=== PATIENT | male | born 1950 | race Caucasian/White ===

== ENCOUNTER 2016-06-29 01:15 | Inpatient (IN) | payer BC, OTHER ==
[~2016-06-29] VITALS: Ht 177.8 cm; Wt 95.3 kg
--- NOTE | ~2016-06-29 | D ---
[facility] [place] [address] DISCHARGE SUMMARY Name: SHARON LO Room #: 214-P [facility] IN M.R.#: [id number] Admission: 06/29/16 Attend Phys: Kameron Pineda MD Discharge: 06/30/16 Date of : 52 Report #: [id number] THIS REPORT FOR: //name// CC: Kameron Alvarenga MD DATE OF SERVICE: 06/30/2016 DISCHARGE DIAGNOSES: 1. New atrial fibrillation, now in sinus. 2. Coronary artery disease. 3. Hypertension. 4. Dyslipidemia. 5. Peripheral vascular disease. 6. Prior history of tobacco abuse. CONSULTS: Cardiology. PROCEDURES: None. HOSPITAL COURSE: The patient is a 65-year-old male with a history of coronary artery disease, drug-eluting stent, hypertension, dyslipidemia, peripheral vascular disease, tobacco abuse, presented to the ER. The patient was transferred from [facility] secondary to rapid AFib. Please see details of admission dictated by myself on 06/29/2016. The patient was admitted and Cardiology was consulted. He was initially on a Cardizem drip and subsequently switched to oral Cardizem. He is now back in sinus and rate controlled. He has been on Effient for drug-eluting stent that was placed in December of last year. He had no ischemic symptoms; therefore, repeat stress test was not ordered. He was feeling much better once his rhythm was back in sinus. Cardiology recommended discharge and outpatient followup with Dr. Calvin. He was also started on Eliquis as well. DISCHARGE DISPOSITION: To home. DISCHARGE PHYSICAL EXAMINATION: VITAL SIGNS: Temperature of 98.8, pulse of 69, blood pressure 120/78, O2 sats 95% on room air. GENERAL: He is awake, alert, answering question appropriately, no acute respiratory distress. HEENT: Normocephalic, atraumatic. Pupils equal. NECK: Supple. CARDIOVASCULAR: Regular rate and rhythm. No murmurs. LUNGS: Clear to auscultation bilaterally. No crackles or wheeze. ABDOMEN: Soft, no distention or tenderness. [facility] [address] [place] [address] DISCHARGE SUMMARY Name: SHARON LO Room #: 214-P [facility] IN M.R.#: [id number] Admission: 06/29/16 Attend Phys: Kameron Pineda MD Discharge: 06/30/16 Date of : 52 Report #: [id number] EXTREMITIES: No edema. NEUROLOGIC: Nonfocal. DISCHARGE MEDICATION: Vascepa 2 g b.i.d., Eliquis 5 mg b.i.d., Cardizem-CD 180 daily, Avapro 150 b.i.d., Protonix 40 daily, Livalo 4 mg daily. DIET: Cardiac diet. ACTIVITY: As tolerated. FOLLOWUP: With primary care in 1 week with repeat labs and hospital followup. Follow up with Cardiology as instructed and to seek immediate medical attention if symptoms worsen or recur or if he has any significant medical concerns. <ELECTRONICALLY SIGNED> By: Karuna Esqueda MD 07/09/162009 1455 1647 Karuna Esqueda MD /nt
--- NOTE | ~2016-06-29 | EKG ---
[address] [place] [address] ELECTROCARDIOGRAM REPORT Name: SHARON LO Room #: 214-P ADM IN M.R.#: [id number] Admission: 06/29/16 Attend Phys: Kameron Pineda MD Discharge: Date of : 52 Report #: [id number] THIS REPORT FOR: //name// [facility] Test Date: 2016-06-29 Test Time: 07:11:29 Pat Name: SHARON LO Department: Room: 214 P Gender: M Corporate Director Of Human Resources: ARLEEN : 1950 Requested By: Kameron Pineda Order Number: [id number] MD: Timoteo [place] Measurements Intervals [place] Rate: 78 P: MT: QRS: 23 QRSD: 79 T: 61 QT: 328 QTc: 374 Interpretive Statements Atrial fibrillation Early R wave progression Compared to ECG 02/07/2016 06:53:41 Atrial fibrillation has replaced sinus rhythm Electronically Signed On 06-29-2016 13:52:24 MAINTENANCE OPERATOR by Timoteo [place] [email or web address] <ELECTRONICALLY SIGNED> By: Timoteo [place] MD, [facility] 06/29/16 1352 0 0 Timoteo [place] MD, [facility] /EPI
--- NOTE | ~2016-06-29 | EKG ---
[address] [place] [address] ELECTROCARDIOGRAM REPORT Name: SHARON LO Room #: 214-[facility] IN M.R.#: [id number] Admission: 06/29/16 Attend Phys: Kameron Pineda MD Discharge: 06/30/16 Date of : 52 Report #: [id number] THIS REPORT FOR: //name// [facility] Test Date: 2016-06-30 Test Time: 07:39:33 Pat Name: SHARON LO Department: Room: 214 Gender: M Line Ordering Clinician: HEIKE : 1950 Requested By: Timoteo [place] Order Number: [id number] MD: Tim[place] Measurements Intervals [place] Rate: 57 P: -19 MI: 166 QRS: 23 QRSD: 83 T: 44 QT: 386 QTc: 376 Interpretive Statements Sinus bradycardia Abnormal R-wave progression, early transition Compared to ECG 06/29/2016 07:11:29 Atrial fibrillation no longer present Electronically Signed On 06-30-2016 13:42:04 PAPER BOX CUTTER by Tim[place] [email or web address] <ELECTRONICALLY SIGNED> By: Timoteo [place] MD, [facility] 06/30/16 1342 0739 0739 Timoteo [place] MD, [facility] /EPI
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
--- NOTE | ~2016-06-29 | H ---
[facility] [place] [address] HISTORY AND PHYSICAL Name: SHARON LO Room #: 214-P [facility] IN M.R.#: [id number] Admission: 06/29/16 Attend Phys: Kameron Pineda MD Discharge: 06/30/16 Date of : 52 Report #: [id number] THIS REPORT FOR: //name// CC: Kameron Alvarenga DATE OF SERVICE: 06/29/2016 REASON FOR PRESENTATION: The patient is being transferred from another facility. REASON FOR TRANSFER: New-onset AFib. HISTORY OF PRESENT ILLNESS: The patient is a 65-year-old with past medical history of coronary artery disease status post stent. He is also known to have peripheral arterial disease. He is not really sure about which side, but he tells me he has a stent placed into his lower extremity. The details of his cardiac cath revealed that the patient has PTCA with PCI performed to the obtuse marginal branch with a Resolute stent. Had normal ejection fractions with an ejection fraction estimate of 55%-60%. He is also known to have hypertension. He woke up with pounding headaches yesterday. He measured his blood pressure and found his blood pressure to be extremely high. He reported the systolic blood pressure to be in the 200s. Denies any chest pain or palpitation. He presented to [facility] where he was found to be in AFib with RVR. He was transferred here based on his request as he is followed up by Dr. Calvin. He had numerous admissions back in 2016 for multiple cardiac problems. PAST MEDICAL HISTORY: 1. Hypercholesterolemia. 2. Hypertension. 3. Coronary artery disease, post stent. 4. Peripheral arterial disease. PAST SURGICAL HISTORY: 1. Cardiac catheterizations. 2. Stent in the lower extremity. 3. Appendectomy. 4. Knee surgery. 5. Right elbow surgery. MEDICATIONS: 1. Avapro. 2. Effient. 3. Livalo. 4. Prednisone Dosepak recently started for bursitis. 5. Protonix. [facility] [address] [place] [address] HISTORY AND PHYSICAL Name: SHARON LO ESTELLA Room #: 214-P [facility] IN ..#: [id number] Admission: 06/29/16 Attend Phys: Kameron Pineda MD Discharge: 06/30/16 Date of : 52 Report #: [id number]. ____. ALLERGIES: He has reported allergy to CIPROFLOXACIN. FAMILY HISTORY: Significant for coronary artery disease. SOCIAL HISTORY: He denies drug or alcohol abuse. He quit smoking. REVIEW OF SYSTEMS: GENERAL: No fever or chills. CARDIOVASCULAR: As per the history of present illness. PULMONARY: No cough or hemoptysis. GASTROINTESTINAL: No nausea or vomiting. GENITOURINARY: No frequency, no urgency, no hesitancy. PHYSICAL EXAMINATION: GENERAL: The patient is alert, oriented, in no apparent distress. VITAL SIGNS: Blood pressure is 125/65, temperature is 36.7, pulse rate was 95. He was in AFib, was irregularly irregular. HEAD AND NECK: No jugular venous distention, no bruit, no thyromegaly. CHEST: Clear to auscultation bilaterally. CARDIOVASCULAR: No rub detected. ABDOMEN: Soft, nontender with no hepatosplenomegaly. LOWER EXTREMITIES: There is no edema. LABORATORY DATA: From the outside facility revealed hematocrit of 44, hemoglobin 15.3. BUN was 21, creatinine was 1.0. His initial troponin was reported to be less than 0.17. His UA showed trace blood with negative red blood cells. RADIOLOGICAL STUDIES: His chest x-ray revealed no acute process. ASSESSMENT, IMPRESSION AND PLAN: 1. New-onset atrial fibrillation with rapid ventricular response. 2. Hypertension. 3. Coronary artery disease. 4. Hyperlipidemia. 5. Admission. 6. Routine labs. 7. Serial troponins. 8. EKGs. 9. Resume the patient's medications. 10. Anticoagulation; he is maintained on Effient. 11. Blood pressure control. 12. Recent echo was done on the patient back in February 2016 and he has maintained his ejection fraction in the normal range. I will not repeat any [facility] [address] [place] [address] HISTORY AND PHYSICAL Name: WALLYSHARON ESTELLA Room #: 214-P DIS IN M.R.#: [id number] Admission: 06/29/16 Attend Phys: Kameron Pineda MD Discharge: 06/30/16 Date of : 52 Report #: [id number] echos at this point. 13. Defer further management of his atrial fibrillation with amiodarone, beta-emir to the cardiology team. <ELECTRONICALLY SIGNED> By: Kameron Pineda MD 07/09/16 1524 0257 0740 Kameron Pineda MD /nt
[~2016-06-29 01:15] MED LIST: ASPIRIN325 PO; ATORVASTATIN CA40 MG PO; BYSTOLIC 5 MG5 M1 PO; DARVOCET-N 1001 EACH PO; EFFIENT10 MG PO; IRBESARTAN300 MG PO; LISINOPRIL20 MG PO; LOPRESSOR25 PO; NOHOMEMEDICATIONS; PANTOPRAZOLE SO40 M1 PO; PROTONIX40 M1 PO; TYLENOL325 MG PO
[2016-06-29 02:31] VITALS: BP 125/65
[2016-06-29] MEDS ORDERED: LIVALO4 MG PO (03:56)
[2016-06-29] MEDS ORDERED: AVAPRO 150 MG150 M1 PO (03:56)
[2016-06-29] MEDS ORDERED: PROTONIX40 M1 PO (03:58)
[2016-06-29] MEDS ORDERED: VASCEPA1 GM PO (03:59)
[2016-06-29 06:53] LABS: HEMATOCRIT 42.4 % (42.0-52.0); HEMOGLOBIN 14.4 gm/dL (14.0-18.0); MCH 29.5 pg (26.0-34.0); MCHC 34.1 % (28.0-37.0); MCV 86.5 fL (80.0-100.0); RBC 4.89 mil/uL (4.50-6.00); RDW 14.5 % (10.5-14.5); WBC 12.7 thou/uL (4.0-11.0)
[2016-06-29 07:05] LABS: PROTIME 10.7 Seconds (9.3-11.4)
[2016-06-29 07:10] LABS: ALBUMIN 3.2 g/dL (3.4-5.0); CALCIUM 8.3 mg/dL (8.5-10.1); POTASSIUM 3.8 mmol/L (3.5-5.1); TOTAL BILIRUBIN 0.3 mg/dL (<0.1-1.0); TOTAL PROTEIN 6.2 g/dL (6.4-8.2); TROPONIN-I 0.06 ng/mL (<0.04-0.07)
[2016-06-29 07:37] VITALS: BP 107/65
[2016-06-29 11:12] VITALS: BP 94/57
[2016-06-29 16:08] VITALS: BP 104/68
[2016-06-29 19:50] VITALS: BP 111/69
[2016-06-30 04:02] LABS: ABSOLUTE NEUTROPHILS 6.6 thou/uL (1.4-8.2); BASOPHILS 0.6 % (0.0-2.0); EOSINOPHILS 2.5 % (0.0-3.0); HEMOGLOBIN 14.5 gm/dL (14.0-18.0); LYMPHOCYTES 21.3 % (24.0-44.0); MCH 29.2 pg (26.0-34.0); MCHC 33.6 % (28.0-37.0); MCV 86.7 fL (80.0-100.0); MONOCYTES 8.9 % (1.0-8.0); PLATELET COUNT 209 thou/uL (150-400); POLYS 66.7 % (36.0-66.0); RBC 4.96 mil/uL (4.50-6.00); RDW 14.9 % (10.5-14.5); WBC 9.9 thou/uL (4.0-11.0)
[2016-06-30 04:17] LABS: MANUAL DIFF NO
[2016-06-30 05:44] VITALS: BP 141/76
[2016-06-30 08:30] VITALS: BP 129/78
[2016-06-30] MEDS ORDERED: CARDIZEM CD180 MG PO (09:09)
[2016-06-30] MEDS ORDERED: ELIQUIS5 MG PO (09:09)
[2016-06-30 10:53] VITALS: BP 129/78
[2016-06-30 11:07] VITALS: BP 129/78
== END 2016-06-30 12:00 | disposition home or self-care (01) | DRG 310 ==
LOC: 2N 01:15
PROVIDERS: Family Medicine; Hospitalist
DX: I48.91 Unspecified atrial fibrillation (principal); I25.10 Atherosclerotic heart disease of native coronary artery without angina pectoris; I10 Essential (primary) hypertension; E78.5 Hyperlipidemia, unspecified; J44.9 Chronic obstructive pulmonary disease, unspecified; E78.00 Pure hypercholesterolemia, unspecified; M19.90 Unspecified osteoarthritis, unspecified site; I73.9 Peripheral vascular disease, unspecified; Z91.09 Other allergy status, other than to drugs and biological substances; Z79.01 Long term (current) use of anticoagulants; Z95.5 Presence of coronary angioplasty implant and graft; Z79.899 Other long term (current) drug therapy; Z87.891 Personal history of nicotine dependence; Z98.890 Other specified postprocedural states; Z90.49 Acquired absence of other specified parts of digestive tract; Z82.49 Family history of ischemic heart disease and other diseases of the circulatory system
CPT/HCPCS: 10081

== ENCOUNTER 2017-08-13 20:19 | Inpatient (IN) | payer OTHER ==
[~2017-08-13] VITALS: Ht 177.8 cm; Wt 93.9 kg
--- NOTE | ~2017-08-13 | EKG ---
[place] [address] [address] [place] [address] ELECTROCARDIOGRAM REPORT Name: SHARON LO Room #: 349-I [facility] IN ..#: [id number] Admission: 08/13/17 Attend Phys: Lm Camilo MD Discharge: 08/14/17 Date of : 51 Report #: [id number] THIS REPORT FOR: //name// [facility] ED Test Date: 2017-08-13 Test Time: 20:26:17 Pat Name: SHARON LO Department: Room: [facility] Gender: M Electric Range Preparer: : 1950 Requested By: Partha Mitchell Order Number: [id number] MD: Timoteo [place] Measurements Intervals [place] Rate: 51 P: 51 [place]: 187 QRS: 17 QRSD: 108 T: 37 QT: 377 QTc: 348 Interpretive Statements Sinus bradycardia Abnormal R-wave progression, early transition Compared to ECG 06/30/2016 07:39:33 No significant change was found Electronically Signed On 08-17-2017 13:07:47 CDT by Timoteo [place] [email or web address] <ELECTRONICALLY SIGNED> By: Timoteo [place] MD, [facility] 08/17/17 1307 25 25 Timoteo [place] MD, [facility] /EPI
--- NOTE | ~2017-08-13 | EXE ---
[facility] [place] [employer] [address] STRESS ECHOCARDIOGRAM Name: SHARON LO Room #: 349-I ADM IN ..#: [id number] Admission: 08/13/17 Attend Phys: Lm Camilo, Discharge: Date of : 52 Date of Service: 08/14/17 1230 Report #: [id number] THIS REPORT FOR: //name// APPROVED REPORT Exam: Stress Echocardiogram Indication: Chest pain , Dyspnea Patient Location: Echo lab Stress Nurse: Aurelia Hein RN Room #: 349 Status: routine Ht: 5 ft 10 in HR: 57 bpm BP: 138/84 mmHg Rhythm: NSR Medical History Medical History: CAD, stent, Afib Medications: Listed on worksheet Allergies: Cipro Cardiac Risk Factors: HTN, Hyperlipidemia, Smoking, COPD Previous Cardiac Procedures: PCI Procedure The patient underwent an Exercise Stress Test using the Ambrosio Protocol. Blood pressure, heart rate, and EKG were monitored. An Echocardiogram was performed by bulk mail technician in four stages in quad fashion. At peak stress, four selected images were obtained and placed side by side with resting images for comparison. Stress Test Details Stress Test: Exercise stress testing was performed using a Ambrosio protocol. HR Resting HR: 57 bpm Max Heart Rate (APMHR): 155 bpm Max HR Achieved: 130 bpm Target HR (85% APMHR): 131 bpm % of APMHR: 83 Recovery HR: 92 bpm HR response to stress: Did not reach 90% of predicted heart rate. BP Resting BP: 138/84 mmHg Max BP: 203/86 mmHg Recovery BP: 161/80 mmHg [facility] [address] [place] [address] STRESS ECHOCARDIOGRAM Name: WALLYSHARONHenrry SORIA Room #: 349-I [facility]#: [id number] Admission: 08/13/17 Attend Phys: Lm Camilo, Discharge: Date of : 52 Date of Service: 08/14/17 1230 Report #: [id number] Resting ECG: Sinus Rhythm Stress ECG: Sinus Rhythm with PVCs Recovery ECG: Sinus Rhythm with PVCs Clinical Reason for Termination: Maximum fatigue Stress Symptoms: Dyspnea Exercise duration: 9 min 47 sec Highest Stage Achieved: Stage 5: 5.0 mph at 18% grade. Exercise capacity: 12.20 METs Pre-Stress Echo The resting Echocardiogram showed normal left ventricular contractility with an estimated Ejection Fraction of about 55-60%. Sclerotic aortic valve. Mild MR, tirivial TR. Post-Stress Echo The stress Echocardiogram showed normal left ventricular contractility with an estimated Ejection Fraction of about 60-65%. Conclusion Clinical Response: Non-ischemic Exercise Capacity: Average Stress ECG Response: Non-ischemic Stress Echo Images: Non-ischemic Other Information Study Quality: Adequate/lung disease artifact <ELECTRONICALLY SIGNED> By: Kevin Calvin MD, FACC 08/14/17 1230 1230 1230 Kevin Calvin MD, FACC /INF
[~2017-08-13 20:19] MED LIST changes: +AVAPRO 150 MG150 M1 PO; +CARDIZEM CD180 MG PO; +ELIQUIS5 MG PO; +LIVALO4 MG PO; +VASCEPA1 GM PO
[2017-08-13 20:31] VITALS: BP 152/85
[2017-08-13] MEDS ORDERED: CARDIZEM CD240 MG PO (20:44)
[2017-08-13] MEDS ORDERED: CRESTOR20 MG PO (20:44)
[2017-08-13] MEDS ORDERED: TOPROL XL50 MG PO (20:45)
[2017-08-13] MEDS ORDERED: ASPIRIN81 M2 PO (20:45)
[2017-08-13 20:48] LABS: EOSINOPHILS 4.8 % (0.0-3.0); HEMATOCRIT 41.2 % (42.0-52.0); HEMOGLOBIN 14.3 gm/dL (14.0-18.0); LYMPHOCYTES 20.6 % (24.0-44.0); MCH 31.5 pg (26.0-34.0); MCHC 34.7 g/dL (28.0-37.0); MCV 90.6 fL (80.0-100.0); MONOCYTES 7.5 % (1.0-8.0); PLATELET COUNT 189 thou/uL (150-400); POLYS 66.1 % (36.0-66.0); RBC 4.55 mil/uL (4.50-6.00); RDW 13.8 % (10.5-14.5); WBC 10.6 thou/uL (4.0-11.0)
[2017-08-13 20:57] LABS: ANION GAP 9 mmol/L (7-16); BUN 19 mg/dL (7-18); CALCIUM 9.3 mg/dL (8.5-10.1); CHLORIDE 105 mmol/L (98-107); CO2 27 mmol/L (21-32); CREATININE 1.2 mg/dL (0.7-1.3); GLUCOSE 112 mg/dL (74-106); POTASSIUM 3.7 mmol/L (3.5-5.1); SODIUM 141 mmol/L (136-145)
[2017-08-13 21:05] LABS: ALBUMIN 3.7 g/dL (3.4-5.0); SGOT 21 U/L (15-37); SGPT 33 U/L (30-65); TOTAL BILIRUBIN 0.2 mg/dL (<0.1-1.0); TOTAL PROTEIN 7.2 g/dL (6.4-8.2); TROPONIN-I < 0.04 ng/mL (<0.06)
[2017-08-14 01:25] VITALS: BP 140/79
[2017-08-14 03:30] LABS: ANION GAP 6 mmol/L (7-16); BUN 19 mg/dL (7-18); CALCIUM 8.9 mg/dL (8.5-10.1); CHLORIDE 106 mmol/L (98-107); CO2 27 mmol/L (21-32); CREATININE 1.1 mg/dL (0.7-1.3); GLUCOSE 110 mg/dL (74-106); POTASSIUM 3.7 mmol/L (3.5-5.1); SODIUM 139 mmol/L (136-145)
[2017-08-14 03:38] LABS: TROPONIN-I < 0.04 ng/mL (<0.06)
[2017-08-14 04:00] VITALS: BP 138/71
[2017-08-14 07:03] VITALS: BP 138/84
[2017-08-14 12:15] VITALS: BP 145/68
[2017-08-14 15:30] VITALS: BP 145/68
== END 2017-08-14 17:07 | disposition home or self-care (01) | DRG 206 ==
LOC: ER 20:19 → 3W 21:54 → EROBS 21:54 → 3W 08-14 01:26 → ENTRNSPT 08-14 16:15 → 3W 08-14 17:07
PROVIDERS: Emergency Medicine; Nurse Practitioner Family
DX: M94.0 Chondrocostal junction syndrome [Tietze] (principal); R00.1 Bradycardia, unspecified; J44.9 Chronic obstructive pulmonary disease, unspecified; I10 Essential (primary) hypertension; I25.10 Atherosclerotic heart disease of native coronary artery without angina pectoris; M19.90 Unspecified osteoarthritis, unspecified site; I73.9 Peripheral vascular disease, unspecified; I48.0 Paroxysmal atrial fibrillation; E78.00 Pure hypercholesterolemia, unspecified; G47.33 Obstructive sleep apnea (adult) (pediatric); Z90.49 Acquired absence of other specified parts of digestive tract; Z87.891 Personal history of nicotine dependence; Z79.899 Other long term (current) drug therapy; Z88.1 Allergy status to other antibiotic agents; Z95.5 Presence of coronary angioplasty implant and graft

== ENCOUNTER 2017-12-08 08:56 | Inpatient (IN) | payer OTHER ==
[~2017-12-08] VITALS: Ht 177.8 cm; Wt 90.7 kg
[2017-12-08] VITALS (10 sets, daily range): BP systolic 113–130; BP diastolic 65–73
--- NOTE | ~2017-12-08 | EKG ---
[place] [address] [facility] [employer] [place] [address] ELECTROCARDIOGRAM REPORT Name: PATTY LODIHenrry THORNTONAR Room #: 209-P ADM IN M.R.#: [id number] Admission: 12/08/17 Attend Phys: Kevin Calvin MD, Discharge: Date of : 52 Report #: [id number] THIS REPORT FOR: //name// [facility] Test Date: 2017-12-08 Test Time: 10:01:14 Pat Name: SHARON LO Department: Room: 209 P Gender: M Order Department Supervisor: Dilip RODGERS : 1950 Requested By: Kevin Calvin Order Number: [id number] MD: Timoteo [place] Measurements Intervals [place] Rate: 50 P: 38 [place]: 200 QRS: 19 QRSD: 106 T: 35 QT: 389 QTc: 355 Interpretive Statements Sinus bradycardia Abnormal R-wave progression, early transition Compared to ECG 08/13/2017 20:26:17 No significant change was found Electronically Signed On 12-08-2017 15:37:05 CDT by Timoteo [place] [email or web address] <ELECTRONICALLY SIGNED> By: Timoteo [place] MD, [facility] 12/08/17 1537 1001 1001 Timoteo [place] MD, [facility] /EPI
--- NOTE | ~2017-12-08 | D ---
[facility] [place] [address] DISCHARGE SUMMARY Name: SHARON LO Room #: 209-P DIS IN M.R.#: [id number] Admission: 12/08/17 Attend Phys: Kevin Calvin MD, Discharge: 12/08/17 Date of : 52 Report #: [id number] THIS REPORT FOR: //name// CC: Harvey Calvin [facility] COURSE: The patient is a 67-year-old male, well known to myself Dr. Hortensia Garcia and Dr. Stephenson's office in [place], comes in with chest pain and pressure with equivocal troponin. He had a stent placed to the circumflex OM 2 years ago. Nonspecific EKG changes. Because of his recurrent pain, I took him back to the catheterization lab to delineate the anatomy. There is no significant restenosis in that stent, 30-40% circ OM and a 50% RCA lesion which we have been following. It looks to be relatively unchanged, minimal LAD disease extends around the apex. There is a very small infrarenal aortic aneurysm. I will evaluate with ultrasound. There is a right renal stenosis of 40%, which we will follow. The left renal artery is widely patent. He tolerated this well. I suspected some more GI or esophageal possibly. I would recommend doubling up on his Protonix, his PPI until he sees Dr. Garcia. Perhaps for a month or so, restart his home medications of aspirin, atorvastatin and diltiazem 180. No lifting for 48 hours. No lying in tub, Jacuzzi or serrano for a week. I will have followup with the patient in 6 months. This does not appear to be significant progression in his coronary artery disease since the stent placement of 12/30/2015. DISCHARGE DIAGNOSES: 1. Chest pain, presumably gastrointestinal. 2. Coronary artery disease with moderate disease as described above. No significant progression, stent to the circumflex OM in 12/2015. 3. Hypertension. 4. Hypercholesterolemia. 5. Right renal artery 40% and a small infrarenal aortic aneurysm. We will evaluate followup with ultrasound. Thank you for asking me to assist in the care of this patient. Low fat, low sodium, cholesterol diet. <ELECTRONICALLY SIGNED> By: Kevin Calvin MD, FACC 12/15/17 0942 1242 1316 Kevin Calvin MD, FACC /nt
--- NOTE | ~2017-12-08 | H ---
[facility] [place] [address] HISTORY AND PHYSICAL Name: SHARON LO Room #: 209-P [facility] IN M.R.#: [id number] Admission: 12/08/17 Attend Phys: Kevin Calvin MD, Discharge: 12/08/17 Date of : 52 Report #: [id number] THIS REPORT FOR: //name// CC: Harvey Calvin HISTORY OF PRESENT ILLNESS: The patient is a 67-year-old male, well known to myself, history of coronary artery disease, comes in in transfer from [place] with recurrent chest pain and pressure consistent with his prior angina. On 12/30/2015, I placed the stent to the first OM branch, which was relatively large. The left main was free of disease, it was a ramus branch with 40%. The LAD had mild disease. The codominant right was 40-50% proximal lesion, and the circumflex OM was successfully stented with a 2.75 x 14 Resolute drug-eluting stent. He has done well, but has had recurrent pain for the last couple of years. Last stress test was 3 months ago. This discomfort initiated this weekend and subsequently presented to the [facility] Emergency Room and then transferred here to [place]. He is pain free, on heparin drip. Troponin is negative. He has been compliant with medications. He has paroxysmal AFib. He had originally been on Eliquis, believes he was on Xarelto. In any event, he took his novel agent last last night. He is also on a baby aspirin, diltiazem 180, rosuvastatin 20, Protonix. PAST MEDICAL HISTORY: Positive for the paroxysmal AFib, COPD, coronary artery disease with stent, sleep apnea, hypertension, hypercholesterolemia, PVD, elbow surgery. SOCIAL HISTORY: . No alcohol. Quit tobacco 2 years ago, 40-50-pack years. FAMILY HISTORY: Negative for premature coronary artery disease. REVIEW OF SYSTEMS: Negative except for some nocturia and hesitancy. LABORATORY DATA: There is no lab work from here. Creatinine is 1.28. Sodium 137, potassium 4.1. H and H were 15 and 43. This was lab from [place] at 6:00 a.m. on 12/08/2017 which is today. Troponin was negative. We do not have a troponin here. We will repeat a troponin here. He is pain free. We will discontinue the heparin due to the fact that he may or may not have taken his novel agent last night. ASSESSMENT: 1. Chest pain consistent with angina. 2. Hypertension. 3. Hypercholesterolemia. 4. Chronic obstructive pulmonary disease. 5. Paroxys[place] [address] HISTORY AND PHYSICAL Name: SHARON LO ESTELLA Room #: 209-P DIS IN M.R.#: [id number] Admission: 12/08/17 Attend Phys: Kevin Calvin MD, Discharge: 12/08/17 Date of : 52 Report #: [id number] RECOMMENDATION AND PLAN: We will hold heparin. I will continue his medications, otherwise will check a troponin and EKG now and proceed to the catheterization lab in the morning. We will try to confirm with the pharmacy and/or someone at home whether he is actually taking his novel agent, but I would not take the risk of cathing him today. Based on his recurrent chest pain, I would want to delineate the anatomy. Otherwise, we will continue to deal with further admissions for chest pain. Risks, benefits, alternatives and this plan has been discussed with the patient. He does elect to proceed in this fashion. <ELECTRONICALLY SIGNED> By: Kevin Calvin MD, FACC 12/15/17 0942 0938 1408 Kevin Calvin MD, FACC /nt
--- NOTE | ~2017-12-08 | CATHLAB ---
[facility] [place] [address] INVASIVE PROCEDURE REPORT Name: SHARON LO ESTELLA Room #: 209-P [facility] IN .R.#: [id number] Admission: 12/08/17 Attend Phys: Kevin Calvin, Discharge: 12/08/17 Date of : 52 Date of Service: 12/10/17 1739 Report #: [id number] THIS REPORT FOR: //name// APPROVED REPORT Study performed: 12/08/2017 11:48:01 Patient Details Patient Status: In-Patient Room #: The patient is a 67 year-old male Event Personnel Kevin Calvin Relay Operator, Bucky Hogan RN, Malachi Adams [place], Christine RTR Monitor, Antonio Olivares RN domestic violence advocate Performed Left Heart Cath w/or w/o Coronaries [id number] [facility] Renal Bilateral Peripheral Angiography [id number] CVRENALBIL Indication Chest pain Procedure Narrative The Right Groin^ was infiltrated with 1% Lidocaine subcutaneous anesthesia. A PINNACLE 6FR Sheath #[id number] sheath was inserted into the RFA^. Coronary angiography was performed using coronary diagnostic catheters. The right coronary system was accessed and visualized with a JR4 catheter. The left coronary system was accessed and visualized with a JL4 catheter. The left ventricle was accessed and visualized with a PIGTAIL catheter. Left ventriculogram was performed in 30 degree projection. An aortogram of the abdominal aorta was performed. Closure device was deployed with a 6 Fr MYNXGRIP 6/7F #[id number]. The patient tolerated the procedure well and there were no complications associated with the procedure. There was no hematoma. Intraoperative Conscious Sedation Sedation start time: 12.15 Case end Time: 12.50 Fentanyl 50 mcg Versed 1.5 mg Fluoro Time: 1.56 minutes Dose: DAP 4180.70 cGycm2 507 mGy Contrast Type and Amount: Visipaque 125 ml [facility] [address] [place] [address] INVASIVE PROCEDURE REPORT Name: SHARON LO ESTELLA Room #: 209-P [facility] IN M.R.#: [id number] Admission: 12/08/17 Attend Phys: Kevin Calvin, Discharge: 12/08/17 Date of : 52 Date of Service: 12/10/17 1739 Report #: [id number] Hemodynamics The aortic pressure is 124/58 mmHg with a mean of 85 mmHg. The left ventricular pressure is 117/9 mmHg with a mean of mmHg. The left ventricular end diastolic pressure is 20 mmHg. Conclusion #1 hyperdynamic LV function EF 65% range #2 abdominal aortogram mildly disease renal arteries and distal aortic ectasia and calcification with mild stenosis. #3 left main mildly disease giving rise to LAD ramus branch and a circumflex artery. #4 LAD extends to the apex with minimal irregularity #5 ramus branch is widely patent #6 circumflex OM the first OM is an eccentric 40-40% irregularity and mild disease in the more distal circumflex codominant system #7 dominant right with an eccentric 60-70% lesion smooth filling a smaller caliber codominant right no indication for intervention #8 selective bilateral renal angiography is a 40% lesion in the ostial right renal and a 30% left renal artery Recommendations and plan continue aggressive risk factor modification. No coronary intervention. We'll continue to follow coronary anatomy particularly the RCA lesion for ischemia. No intervention currently indicated <ELECTRONICALLY SIGNED> By: Kevin Calvin MD, FACC 12/10/17 1739 173 173 Kevin Calvin MD, FACC /INF
[~2017-12-08 08:56] MED LIST changes: +ASPIRIN81 M2 PO; +CARDIZEM CD240 MG PO; +CRESTOR20 MG PO; +TOPROL XL50 MG PO
[2017-12-08] MEDS ORDERED: KRILL OIL500 MG PO (09:41)
[2017-12-08] MEDS ORDERED: UNICOMPLEX M TA1 TA1 PO (09:41)
[2017-12-08] MEDS ORDERED: LISINOPRIL10 MG PO (12:58)
[2017-12-08] MEDS ORDERED: PANTOPRAZOLE SO40 M1 PO (12:58)
[2017-12-08] MEDS ORDERED: CRESTOR20 MG PO (12:58)
== END 2017-12-08 16:30 | disposition home or self-care (01) | DRG 287 ==
LOC: 2N 08:56
PROC: B418YZZ Fluoroscopy of Bilateral Renal Arteries using Other Contrast (ICD-10-PCS; principal; 2017-12-08)
PROC: 4A023N7 Measurement of Cardiac Sampling and Pressure, Left Heart, Percutaneous Approach (ICD-10-PCS; principal; 2017-12-08)
PROC: B310YZZ Fluoroscopy of Thoracic Aorta using Other Contrast (ICD-10-PCS; principal; 2017-12-08)
PROC: B211YZZ Fluoroscopy of Multiple Coronary Arteries using Other Contrast (ICD-10-PCS; principal; 2017-12-08)
DX: I11.0 Hypertensive heart disease with heart failure (principal); I25.10 Atherosclerotic heart disease of native coronary artery without angina pectoris; I50.33 Acute on chronic diastolic (congestive) heart failure; I48.0 Paroxysmal atrial fibrillation; J44.9 Chronic obstructive pulmonary disease, unspecified; I72.2 Aneurysm of renal artery; E78.5 Hyperlipidemia, unspecified; G47.33 Obstructive sleep apnea (adult) (pediatric); I65.29 Occlusion and stenosis of unspecified carotid artery; E78.00 Pure hypercholesterolemia, unspecified; I73.9 Peripheral vascular disease, unspecified; Z82.49 Family history of ischemic heart disease and other diseases of the circulatory system; Z79.899 Other long term (current) drug therapy; Z79.82 Long term (current) use of aspirin; Z88.1 Allergy status to other antibiotic agents; Z88.8 Allergy status to other drugs, medicaments and biological substances
CPT/HCPCS: 10081

== ENCOUNTER 2019-04-15 10:13 | Observation (INO) | payer OTHER ==
[~2019-04-15] VITALS: Ht 180.3 cm; Wt 93.9 kg
[2019-04-15] VITALS (10 sets, daily range): BP systolic 126–155; BP diastolic 38–88
[~2019-04-15 10:13] MED LIST changes: +KRILL OIL500 MG PO; +LISINOPRIL10 MG PO; +UNICOMPLEX M TA1 TA1 PO
[2019-04-15 11:15] LABS: HEMATOCRIT 41.8 % (42.0-52.0); MCH 31.8 pg (26.0-34.0); MCHC 33.4 g/dL (28.0-37.0); MCV 95.2 fL (80.0-100.0); RBC 4.39 mil/uL (4.50-6.00); RDW 12.8 % (10.5-14.5); WBC 8.1 thou/uL (4.0-11.0)
[2019-04-15 11:18] LABS: CALCIUM 9.5 mg/dL (8.5-10.1); CREATININE 1.2 mg/dL (0.7-1.3); POTASSIUM 3.9 mmol/L (3.5-5.1); PROTIME 10.6 Seconds (9.3-11.4)
[2019-04-15] MEDS ORDERED: VALSARTAN-HCTZ1 EAC4 PO (11:41)
[2019-04-15] MEDS ORDERED: BYSTOLIC10 MG PO (11:41)
--- NOTE | 2019-04-15 17:21 | EKG ---
[address] [place] [address] ELECTROCARDIOGRAM REPORT Name: SHARON LO Room #: 207-[facility] M.R.#: [id number] Admission: 04/15/19 Attend Phys: Kevin Calvin MD, Discharge: Date of : 52 Report #: [id number] THIS REPORT FOR: //name// [facility] Test Date: 2019-04-15 Test Time: 10:57:17 Pat Name: SHARON LO Department: [facility] Gender: M Ecological Technical Officer: Dilip RODGERS : 1950 Requested By: Kevin Calvin Order Number: [id number] MD: Timoteo Lima Measurements Intervals [place] Rate: 55 P: 65 IN: 180 QRS: 18 QRSD: 102 T: 42 QT: 382 QTc: 366 Interpretive Statements Sinus bradycardia Abnormal R-wave progression, early transition Compared to ECG 12/08/2017 10:01:14 No significant change was found Electronically Signed On 04-15-2019 17:21:07 BASEBALL GLOVE SHAPER by Timoteo Lima [email or web address] <ELECTRONICALLY SIGNED> By: Timoteo Lima MD, [facility] 04/15/19 0336 1057 1057 Timoteo Lima MD, [facility] /EPI
[2019-04-16 00:31] VITALS: BP 125/67
[2019-04-16 04:05] VITALS: BP 143/74
[2019-04-16 05:34] LABS: HEMOGLOBIN 13.9 gm/dL (14.0-18.0); MCHC 33.8 g/dL (28.0-37.0); MCV 94.6 fL (80.0-100.0); RBC 4.33 mil/uL (4.50-6.00); RDW 13.1 % (10.5-14.5); WBC 10.1 thou/uL (4.0-11.0)
[2019-04-16 05:41] LABS: ALBUMIN 3.5 g/dL (3.4-5.0); CALCIUM 8.9 mg/dL (8.5-10.1); CREATININE 1.1 mg/dL (0.7-1.3); POTASSIUM 3.8 mmol/L (3.5-5.1); TOTAL BILIRUBIN 0.5 mg/dL (<0.1-1.0); TOTAL PROTEIN 6.4 g/dL (6.4-8.2); TROPONIN-I 0.11 ng/mL (<0.06)
[2019-04-16 07:39] VITALS: BP 136/65
[2019-04-16] MEDS ORDERED: EFFIENT10 MG PO (07:48)
[2019-04-16] MEDS ORDERED: ASPIRIN325 PO (07:48)
[2019-04-16] MEDS ORDERED: BYSTOLIC 5 MG5 MG PO (07:48)
--- NOTE | 2019-04-16 08:03 | EKG ---
[place] [address] [facility] [place] [address] ELECTROCARDIOGRAM REPORT Name: WALLYSHARON ESTELLA Room #: 207-P [facility] M.R.#: [id number] Admission: 04/15/19 Attend Phys: Kevin Calvin MD, Discharge: Date of : 52 Report #: [id number] THIS REPORT FOR: //name// [facility] Test Date: 2019-04-16 Test Time: 07:29:36 Pat Name: SHARON LO Department: Room: 207 P Gender: M Farm Facility Manager: RT : 1950 Requested By: Aubree Bee Order Number: [id number] MD: Timoteo Lima Measurements Intervals [place] Rate: 65 P: 72 [place]: 216 QRS: 12 QRSD: 96 T: 61 QT: 342 QTc: 356 Interpretive Statements Sinus rhythm Frequent premature ventricular complexes Early R-wave progression Compared to ECG 04/15/2019 10:57:17 Ventricular premature complex(es) now present Sinus bradycardia no longer present Electronically Signed On 04-16-2019 8:03:05 CHARTER DRIVER by Timoteo Lima [email or web address] <ELECTRONICALLY SIGNED> By: Timoteo Lima MD, [facility] 04/16/19 0803 0729 0729 Timoteo Lima MD, [facility] /EPI
[2019-04-16 09:21] VITALS: BP 136/65
[2019-04-16 09:31] VITALS: BP 136/65
--- NOTE | 2019-04-16 18:23 | CATHLAB ---
[facility] [address] [place] [address] INVASIVE PROCEDURE REPORT Name: WALLYSHARON ESTELLA Room #: 207-P [facility] IN ..#: [id number] Admission: 04/15/19 Attend Phys: Kevin Calvin, Discharge: 04/16/19 Date of : 52 Report #: [id number] THIS REPORT FOR: //name// APPROVED REPORT Study performed: 04/15/2019 12:10:50 Patient Details Patient Status: Out-Patient Room #: The patient is a 68 year-old male Event Personnel Kevin Calvin Renal Medicine Specialist, Evelyn Boateng RN RN, Macy Lo Monitor, Dennis Diane RTR Monitor, Susu Montalvo RTR Scrub, Boy Gardiner RTR Scrub, Talib Goetz RTR Scrub Procedures Performed Art Access - R femoral artery* 25314 Initial Mod Sed Same Phys/QHP Gr5y 786723 83914 Mod Sed Same Phys/QHP Ea 970871 Left Heart Cath w/or w/o Coronaries 7605248 [facility] Place w/wo Plasty Single RCA 857324 Hemostasis w/ Mynx Indication Chest pain Procedure Narrative The patient was brought electively to the Cardiac Catheterization Laboratory and was prepped and draped in a sterile manner. The Right Groin^ was infiltrated with 1% Lidocaine subcutaneous anesthesia. A PINNACLE 6FR Sheath #[id number] sheath was inserted into the RFA^. Coronary angiography was performed using coronary diagnostic catheters. The right coronary system was accessed and visualized with a JR 4 catheter. The left coronary system was accessed and visualized with a JL 4 catheter. The left ventricle was accessed and visualized with a Pigtail catheter. Left ventricular/Aortic Valve gradient assessed via catheter pullback. Left ventriculogram was performed in MIKE projection. Pre-demployment femoral angiogram was performed . Hemostasis was obtained with manual pressure following sheath removal without any complications. The patient tolerated the procedure well and there were no complications associated with the procedure. There was no hematoma. Intraoperative Conscious Sedation Sedation start time: 12:56 Case end Time: [address] [address] INVASIVE PROCEDURE REPORT Name: WALLYSHARONZANE SORIA Room #: 207-P [facility] IN .R.#: [id number] Admission: 04/15/19 Attend Phys: Kevin Calvin, Discharge: 04/16/19 Date of : 52 Report #: [id number] 13:50 Fentanyl mcg Versed mg Fluoro Time: 5.30 minutes Dose: DAP 8403.00 cGycm2 1054 mGy Contrast Type and Amount: Omnipaque 150 ml Hemodynamics The aortic pressure is 148/63 mmHg with a mean of 91 mmHg. The left ventricular pressure is 154/10 mmHg with a mean of mmHg. The left ventricular end diastolic pressure is 20 mmHg. PCI Technique Lesion Percutaneous coronary intervention was performed on the proximal right coronary artery. A LAUNCHER 6FR JR 4 #[id number] Guide Catheter was used to engage the ostium. A Luge Wire .014 x 182CM #[id number] Interventional Guidewire was used to cross the lesion. STENT DEPLOYMENT A drug-eluting stent RESOLUTE MELINDA OTW 3.5 X 12 #[id number] was inserted and inflated up to 18.00atm for 33seconds. Additional Inflation: 20.00atm for 20seconds. Conclusion #1 successful PTCA stent of the proximal RCA 75% eccentric hazy area placement of a 3.5 x 12 Melinda resolute medicated stent codominant RCA with WARNER grade 3 flow no dissection. 0 residual #2 left main short free of disease giving rise to LAD and circumflex #3 LAD extends around the apex it is minimally disease distally well-preserved vessel #4 there is a ramus intermedius which has an ostial lesion of 30-40% otherwise moderate in size and well-preserved #5 codominant circumflex with mild irregularity there is a 3040% first OM mid vessel lesion this is partially supplying the inferior wall. #6 normal left ventricular size and systolic function EF 60% Recognitions and plan continue aggressive risk factor modification. Dual antiplatelet therapy one year. Patient transfer CCU stable condition. <ELECTRONICALLY SIGNED> By: Kevin Calvin MD, FACC 04/16/191822 22 22 Kevin Calvin MD, FACC /INF
== END 2019-04-16 10:07 | disposition home or self-care (01) ==
LOC: CATH 10:13 → 2N 14:43
PROVIDERS: Nurse Practitioner Adult Health; ADMIT Internal Medicine Cardiovascular Disease
DX: I25.10 Atherosclerotic heart disease of native coronary artery without angina pectoris (principal); I10 Essential (primary) hypertension; E78.5 Hyperlipidemia, unspecified; I73.9 Peripheral vascular disease, unspecified; I48.0 Paroxysmal atrial fibrillation; G47.33 Obstructive sleep apnea (adult) (pediatric); J44.9 Chronic obstructive pulmonary disease, unspecified; Z79.899 Other long term (current) drug therapy; Z79.82 Long term (current) use of aspirin; Z87.891 Personal history of nicotine dependence

== ENCOUNTER → 2020-03-15 | Outpatient (CLI) | payer MEDICARE ==
[~2020-03-15] MED LIST changes: +BYSTOLIC 5 MG5 MG PO; +BYSTOLIC10 MG PO; +VALSARTAN-HCTZ1 EAC4 PO
== END ==
LOC: SJCVC 14:23 → SJCVCIMAG 14:23
PROVIDERS: ATTEND Internal Medicine Cardiovascular Disease
DX: R94.31 Abnormal electrocardiogram [ECG] [EKG] (principal); I45.10 Unspecified right bundle-branch block; I25.10 Atherosclerotic heart disease of native coronary artery without angina pectoris; I10 Essential (primary) hypertension; E78.00 Pure hypercholesterolemia, unspecified; I65.23 Occlusion and stenosis of bilateral carotid arteries; I73.9 Peripheral vascular disease, unspecified; F17.210 Nicotine dependence, cigarettes, uncomplicated; Z79.899 Other long term (current) drug therapy

== ENCOUNTER 2020-06-18 11:04 | Emergency (ER) | payer OTHER ==
[~2020-06-18] VITALS: Ht 177.8 cm; Wt 95.3 kg
[2020-06-18 11:53] LABS: ABSOLUTE NEUTROPHILS 6.3 thou/uL (1.4-8.2); BASOPHILS 0.3 % (0.0-2.0); EOSINOPHILS 0.7 % (0.0-3.0); HEMATOCRIT 43.9 % (42.0-52.0); HEMOGLOBIN 14.8 gm/dL (14.0-18.0); LYMPHOCYTES 14.1 % (24.0-44.0); MCH 31.1 pg (26.0-34.0); MCHC 33.8 g/dL (28.0-37.0); MCV 92.1 fL (80.0-100.0); MONOCYTES 8.1 % (1.0-8.0); PLATELET COUNT 224 thou/uL (150-400); POLYS 76.8 % (36.0-66.0); RBC 4.77 mil/uL (4.50-6.00); RDW 12.9 % (10.5-14.5); WBC 8.2 thou/uL (4.0-11.0)
[2020-06-18 12:02] LABS: ANION GAP 9 mmol/L (7-16); BUN 13 mg/dL (7-18); CALCIUM 9.5 mg/dL (8.5-10.1); CHLORIDE 103 mmol/L (98-107); CO2 27 mmol/L (21-32); CREATININE 1.2 mg/dL (0.7-1.3); GLUCOSE 102 mg/dL (74-106); SODIUM 139 mmol/L (136-145)
[2020-06-18 12:11] LABS: TROPONIN-I <0.06 ng/mL (<0.06)
--- NOTE | 2020-06-18 12:53 | EKG ---
[place] [address] [place] [address] ELECTROCARDIOGRAM REPORT Name: WALLYSHARON THORNTONAR [id number] Admission: 06/18/20 Attend Phys: Discharge: Date of : 52 Report #: [id number] [facility] ED Test Date: 2020-06-18 Test Time: 11:02:36 Pat Name: SHARON LO Department: Room: Gender: M School Attendance Secretary: LULA : 1950 Requested By: Robi Cantu Order Number: [id number] MD: Timoteo Lima Measurements Intervals [place] Rate: 62 P: 44 [place]: 175 QRS: 30 QRSD: 96 T: 50 QT: 364 QTc: 370 Interpretive Statements Sinus rhythm Abnormal R-wave progression, early transition Compared to ECG 04/16/2019 07:29:36 Ventricular premature complex(es) no longer present Electronically Signed On 06-18-2020 12:52:52 STRIKE OFF MACHINE OPERATOR by iTmoteo Lima [email or web address] <ELECTRONICALLY SIGNED> By: Timoteo Lima MD, [facility] 06/18/20 1252 1102 1102 Timoteo Lima MD, FACC /EPI
[2020-06-18 14:15] VITALS: BP 132/67
== END 2020-06-18 14:16 | disposition home or self-care (01) ==
LOC: ER 11:04
PROVIDERS: Nurse Practitioner
DX: R07.89 Other chest pain (principal); R06.02 Shortness of breath; J44.9 Chronic obstructive pulmonary disease, unspecified; E78.5 Hyperlipidemia, unspecified; M19.90 Unspecified osteoarthritis, unspecified site; I48.91 Unspecified atrial fibrillation; I73.9 Peripheral vascular disease, unspecified; Z90.49 Acquired absence of other specified parts of digestive tract; Z98.890 Other specified postprocedural states; Z95.828 Presence of other vascular implants and grafts; Z79.899 Other long term (current) drug therapy; Z79.82 Long term (current) use of aspirin; Z88.1 Allergy status to other antibiotic agents; Z87.891 Personal history of nicotine dependence

== ENCOUNTER → 2020-08-30 | Outpatient (CLI) | payer OTHER | LOC: SJCVCIMAG 06-28 09:07 | PROVIDERS: ATTEND Internal Medicine Cardiovascular Disease | DX: R94.31 Abnormal electrocardiogram [ECG] [EKG] (principal); I70.203 Unspecified atherosclerosis of native arteries of extremities, bilateral legs; I72.2 Aneurysm of renal artery; I71.4 Abdominal aortic aneurysm, without rupture; I25.10 Atherosclerotic heart disease of native coronary artery without angina pectoris; I73.9 Peripheral vascular disease, unspecified; I48.0 Paroxysmal atrial fibrillation; E78.00 Pure hypercholesterolemia, unspecified; I65.23 Occlusion and stenosis of bilateral carotid arteries; J44.9 Chronic obstructive pulmonary disease, unspecified; I10 Essential (primary) hypertension; G47.33 Obstructive sleep apnea (adult) (pediatric); E78.5 Hyperlipidemia, unspecified; F17.210 Nicotine dependence, cigarettes, uncomplicated; Z78.9 Other specified health status; Z98.61 Coronary angioplasty status; Z79.82 Long term (current) use of aspirin; Z79.899 Other long term (current) drug therapy; Z88.1 Allergy status to other antibiotic agents; Z88.5 Allergy status to narcotic agent; Z88.8 Allergy status to other drugs, medicaments and biological substances ==

== ENCOUNTER → 2021-04-24 | Outpatient (CLI) | payer OTHER | LOC: SJCVCIMAG 08:19 | PROVIDERS: ATTEND Nuclear Medicine Nuclear Cardiology | DX: I65.23 Occlusion and stenosis of bilateral carotid arteries (principal); I73.9 Peripheral vascular disease, unspecified; I77.9 Disorder of arteries and arterioles, unspecified; I25.10 Atherosclerotic heart disease of native coronary artery without angina pectoris; I48.0 Paroxysmal atrial fibrillation; E78.00 Pure hypercholesterolemia, unspecified; R42 Dizziness and giddiness; R94.31 Abnormal electrocardiogram [ECG] [EKG]; M19.90 Unspecified osteoarthritis, unspecified site; R07.9 Chest pain, unspecified; I10 Essential (primary) hypertension; J44.9 Chronic obstructive pulmonary disease, unspecified; E78.5 Hyperlipidemia, unspecified; G47.33 Obstructive sleep apnea (adult) (pediatric); Z79.82 Long term (current) use of aspirin; Z79.899 Other long term (current) drug therapy; Z88.8 Allergy status to other drugs, medicaments and biological substances; Z87.891 Personal history of nicotine dependence ==

== ENCOUNTER → 2021-05-22 | Outpatient (CLI) | payer OTHER | LOC: SJCVC 10:07 | PROVIDERS: ATTEND Internal Medicine Cardiovascular Disease | DX: R94.31 Abnormal electrocardiogram [ECG] [EKG] (principal); I25.10 Atherosclerotic heart disease of native coronary artery without angina pectoris; I10 Essential (primary) hypertension; E78.00 Pure hypercholesterolemia, unspecified; I65.23 Occlusion and stenosis of bilateral carotid arteries; I73.9 Peripheral vascular disease, unspecified; J44.9 Chronic obstructive pulmonary disease, unspecified; I95.9 Hypotension, unspecified; R06.00 Dyspnea, unspecified; R07.89 Other chest pain; G47.33 Obstructive sleep apnea (adult) (pediatric); E78.5 Hyperlipidemia, unspecified; F17.210 Nicotine dependence, cigarettes, uncomplicated; Z78.9 Other specified health status; Z72.89 Other problems related to lifestyle; Z79.82 Long term (current) use of aspirin; Z79.899 Other long term (current) drug therapy; Z88.1 Allergy status to other antibiotic agents; Z88.8 Allergy status to other drugs, medicaments and biological substances ==

== ENCOUNTER → 2021-05-29 | Outpatient (CLI) | payer OTHER ==
[~2021-05-29] VITALS: Ht 177.8 cm; Wt 89.4 kg
[~2021-05-29] MED LIST changes: +PLAVIX 75 MG TA75 MG PO; +REPATHA SU140 MG/1 M SUBQ; +REPATHA SY140 MG/1 M SUBQ
[2021-05-29 07:45] LABS: HEMATOCRIT 45.1 % (42.0-52.0); HEMOGLOBIN 15.3 gm/dL (14.0-18.0); MCH 31.5 pg (26.0-34.0); MCHC 33.9 g/dL (28.0-37.0); RBC 4.85 mil/uL (4.50-6.00); RDW 13.5 % (10.5-14.5); WBC 8.5 thou/uL (4.0-11.0)
[2021-05-29 07:46] VITALS: BP 136/72
[2021-05-29 07:55] LABS: CALCIUM 9.1 mg/dL (8.5-10.1); POTASSIUM 4.1 mmol/L (3.5-5.1)
--- NOTE | 2021-05-29 22:29 | CATHLAB ---
[facility] [place] [address] INVASIVE PROCEDURE REPORT Name: SHARON LO Room #: REG TRICIA Caraballo.#: [id number] Admission: 05/29/21 Attend Phys: Malachi Kim MD Discharge: Date of : 52 Report #: [id number] THIS REPORT FOR: cc: LAURA QUIROZ - Family physician unknown Kevin Calvin MD [facility] ~ APPROVED REPORT Study performed: 05/29/2021 09:51:42 Patient Details The patient is a 70 year-old male Event Personnel Kevin Calvin Director Of Nurses Registry, , Cristina Avendaño RTR Scrub, Jazz Ansari Monitor, Sal Son RN RN, Yuriy Almendarez RN certified activities director Performed Art Access - R femoral artery* Left Heart Cath w/or w/o Coronaries [id number] [facility] [address] Initial Mod Sed Same Phys/QHP Gr5y 883345 Hemostasis w/ Mynx Indication Chest pain Procedure Narrative A 7F 11CM BRITE-TIP sheath was inserted into the RFA 6X11^. Coronary angiography was performed using coronary diagnostic catheters. The right coronary system was accessed and visualized with a JR4 catheter. The left coronary system was accessed and visualized with a JL4 catheter. The left ventricle was accessed and visualized with a STR PIG catheter. The patient tolerated the procedure well and there were no complications associated with the procedure. There was no hematoma. Intraoperative Conscious Sedation Sedation start time: 1015 Case end Time: 1045 Fentanyl mcg Versed 1 mg Fluoro Time: 6.17 minutes Dose: DAP 55934.90 cGycm2 304 mGy Contrast Type and Amount: Visipaque 101 ml [facility] [address] [place] [address] INVASIVE PROCEDURE REPORT Name: WALLYSHARONZANE SORIA Room #: REG GIAN Lynn#: [id number] Admission: 05/29/21 Attend Phys: Malachi Kim, Discharge: Date of : 52 Report #: [id number] Hemodynamics The aortic pressure is 155/73 mmHg with a mean of 88 mmHg. The left ventricular pressure is 147/5 mmHg with a mean of mmHg. The left ventricular end diastolic pressure is 19 mmHg. PCI Technique Lesion Percutaneous coronary intervention was performed on the Common iliac. Conclusion #1 Normal left ventricular size and systolic function EF 55%. #2 left main is mildly disease giving rise to LAD and circumflex. #3 the LAD extends to the apex it is mild irregularity no occlusive disease. #4 there is a large ramus intermedius. It is widely patent with mild irregularity. #5 the first OM off of the circumflex has moderate in-stent restenosis in the proximal segment filling a bifurcating distal branch with moderate disease no occlusive disease for intervention. The circumflex in the AV groove remains widely patent and filling the distal OM. Somewhat codominant. #6 codominant right coronary artery is eccentric mid vessel lesion of 60% supplying a smaller distal RCA and smaller PDA which is somewhat also codominant no occlusive disease for intervention. Recommendations and plan: Continue aggressive risk factor modification. No indication for intervention. Peripheral intervention was undertaken on this exam by Dr. Kim see his report of interventional radiology. <ELECTRONICALLY SIGNED> By: Kevin Calvin MD, FACC 05/29/212228 28 28 Kevin Calvin MD, FACC /INF
== END | disposition home or self-care (01) ==
LOC: CATH 06:25
PROVIDERS: ATTEND Nuclear Medicine Nuclear Cardiology
DX: R07.9 Chest pain, unspecified (principal); I25.10 Atherosclerotic heart disease of native coronary artery without angina pectoris; I70.1 Atherosclerosis of renal artery; I70.211 Atherosclerosis of native arteries of extremities with intermittent claudication, right leg; I10 Essential (primary) hypertension; M79.605 Pain in left leg; M79.604 Pain in right leg; I48.91 Unspecified atrial fibrillation; J44.9 Chronic obstructive pulmonary disease, unspecified; E78.5 Hyperlipidemia, unspecified; M19.90 Unspecified osteoarthritis, unspecified site; Z98.890 Other specified postprocedural states; Z79.899 Other long term (current) drug therapy; Z79.01 Long term (current) use of anticoagulants; Z87.891 Personal history of nicotine dependence; Z90.49 Acquired absence of other specified parts of digestive tract; Z88.8 Allergy status to other drugs, medicaments and biological substances

== ENCOUNTER → 2021-06-27 | Outpatient (CLI) | payer OTHER | LOC: SJCVCIMAG 09:24 | PROVIDERS: ATTEND Internal Medicine Cardiovascular Disease | DX: I70.203 Unspecified atherosclerosis of native arteries of extremities, bilateral legs (principal); M79.606 Pain in leg, unspecified ==